=== PATIENT | male | born 1990 | race Two or more races ===

== ENCOUNTER 2019-02-26 21:37 | Emergency (ER) | payer MEDICARE ==
[~2019-02-26] VITALS: Ht 167.6 cm; Wt 100.4 kg
[~2019-02-26 21:37] MED LIST: ATOR40TA PO; CARV-39 PO; ESCI10TA10 PO; FENO160T PO; GLYB5TAB3 PO; LISI-170 PO; METF500T17 PO; OMEP40CA6 PO; OXCA300T19 PO; OXYB5TAB7 PO; QUET400T4 PO; SPIR25TA PO; ZOLP10TA PO; [UNRECOGNIZED DRUG - OTHER] PO
[2019-02-26 21:43] VITALS: BP 151/101
== END 2019-02-26 23:10 | disposition home or self-care (01) ==
LOC: ED 22:45
DX: S93.401A Sprain of unspecified ligament of right ankle, initial encounter (principal); K21.9 Gastro-esophageal reflux disease without esophagitis; E78.5 Hyperlipidemia, unspecified; E11.9 Type 2 diabetes mellitus without complications; I11.0 Hypertensive heart disease with heart failure; I50.9 Heart failure, unspecified; X50.1XXA Overexertion from prolonged static or awkward postures, initial encounter; Y93.89 Activity, other specified; Y92.009 Unspecified place in unspecified non-institutional (private) residence as the place of occurrence of the external cause; Y99.8 Other external cause status
CPT/HCPCS: 99283

== ENCOUNTER 2019-09-18 15:08 | Emergency (ER) | payer MEDICARE ==
[~2019-09-18] VITALS: Ht 167.6 cm; Wt 92.6 kg
[~2019-09-18 15:08] MED LIST changes: +OMEP40CA42 PO; -OMEP40CA6 PO; +OXYB5TAB10 PO; -OXYB5TAB7 PO
[2019-09-18] MEDS ORDERED: DIAZEPAM 5 MG TABLET ONE (15:47)
[2019-09-18] MEDS ORDERED: KETOROLAC 30 MG/1 ML ONE (15:47)
[2019-09-18] MEDS ORDERED: DIAZEPAM 5 MG TABLET PO ONE (16:00)
[2019-09-18] MEDS ORDERED: KETOROLAC 30 MG/1 ML IM ONE (16:00)
[2019-09-18] MEDS ORDERED: HYDROcodone/APAP 5/325 TABLET PO ONE (16:30)
[2019-09-18] MEDS ORDERED: HYDROcodone/APAP 5/325 TABLET ONE (16:32)
[2019-09-18 16:37] VITALS: BP 111/61
== END 2019-09-18 16:39 | disposition home or self-care (01) ==
LOC: ED 16:38
DX: M54.2 Cervicalgia (principal); R51 Headache; I10 Essential (primary) hypertension; E78.5 Hyperlipidemia, unspecified; K21.9 Gastro-esophageal reflux disease without esophagitis; I50.9 Heart failure, unspecified; E11.9 Type 2 diabetes mellitus without complications; F32.9 Major depressive disorder, single episode, unspecified; V47.0XXA Car driver injured in collision with fixed or stationary object in nontraffic accident, initial encounter; Y93.I9 Activity, other involving external motion; Y92.488 Other paved roadways as the place of occurrence of the external cause; Y99.8 Other external cause status
CPT/HCPCS: 96372; 99283; J1885

== ENCOUNTER 2019-11-13 23:15 | Emergency (ER) | payer MEDICARE ==
[~2019-11-13] VITALS: Ht 167.6 cm; Wt 87.5 kg
[2019-11-14] MEDS ORDERED: ONDANSETRON 2MG/ML, 2ML IVPush ONE
[2019-11-14] MEDS ORDERED: SODIUM CHLORIDE FLUSH 10ML SYR IVF ONE
[2019-11-14] MEDS ORDERED: ONDANSETRON 2MG/ML, 2ML ONE (00:23)
--- NOTE | 2019-11-14 00:25 | NUR ---
PT NEDICATED PER EMAR AND PIV PLACED.
[2019-11-14 00:33] LABS: BASOPHILS # (AUTO) 0.15 x10^3/uL (0-0.1); BASOPHILS % (AUTO) 2 % (0-1); EOSINOPHILS % (AUTO) 3 % (1-7); LYMPHOCYTES # (AUTO) 2.97 x10^3/uL (1-3.4); LYMPHOCYTES % (AUTO) 34 % (22-44); MD NO; MEAN CORPUSCULAR HEMOGLOBIN 28.1 pg (27.5-34.5); MEAN CORPUSCULAR HGB CONC 32.9 g/dL (33.2-36.2); MEAN CORPUSCULAR VOLUME 85.4 fL (81-97); MONOCYTES # (AUTO) 0.59 x10^3/uL (0.2-0.8); MONOCYTES % (AUTO) 7 % (2-9); NEUTROPHILS # (AUTO) 4.73 x10^3/uL (1.8-6.8); NEUTROPHILS % (AUTO) 54 % (42-75); PLATELET COUNT 215 x10^3/uL (130-400); RED BLOOD COUNT 6.46 x10^6/uL (4.38-5.82); RED CELL DISTRIBUTION WIDTH 15.2 % (9.4-14.8)
[2019-11-14 00:48] LABS: ALANINE AMINOTRANSFERASE 25 U/L (12-78); ALBUMIN 2.6 g/dL (3.4-5.0); ANION GAP 7 mmol/L (5-15); CHLORIDE 107 mmol/L (98-107); CREATININE 1.25 mg/dL (0.7-1.3)
[2019-11-14 00:52] LABS: ALKALINE PHOSPHATASE 94 U/L (45-117); BILIRUBIN,TOTAL 0.3 mg/dL (0.2-1.0); TOTAL PROTEIN 6.5 g/dL (6.4-8.2); TROPONIN I 0.016 ng/mL (0.000-0.045)
[2019-11-14 01:26] VITALS: BP 135/95
== END 2019-11-14 01:39 | disposition home or self-care (01) ==
LOC: ED 11-14 00:12
DX: R07.89 Other chest pain (principal); T82.9XXA Unspecified complication of cardiac and vascular prosthetic device, implant and graft, initial encounter; R11.2 Nausea with vomiting, unspecified; K21.9 Gastro-esophageal reflux disease without esophagitis; I50.9 Heart failure, unspecified; I11.0 Hypertensive heart disease with heart failure; E78.5 Hyperlipidemia, unspecified
CPT/HCPCS: 36415; 71045; 80053; 83880; 84484; 85025; 93005; 96374; 99284; J2405

== ENCOUNTER 2019-12-14 06:36 | Emergency (ER) | payer MEDICARE ==
[~2019-12-14] VITALS: Ht 167.6 cm; Wt 86.0 kg
[2019-12-14 07:36] LABS: BASOPHILS # (AUTO) 0.02 x10^3/uL (0-0.1); BASOPHILS % (AUTO) 0 % (0-1); EOSINOPHILS # (AUTO) 0.57 x10^3/uL (0-0.4); EOSINOPHILS % (AUTO) 6 % (1-7); LYMPHOCYTES # (AUTO) 1.99 x10^3/uL (1-3.4); LYMPHOCYTES % (AUTO) 22 % (22-44); MD NO; MEAN CORPUSCULAR HEMOGLOBIN 28.8 pg (27.5-34.5); MEAN CORPUSCULAR HGB CONC 33.3 g/dL (33.2-36.2); MEAN CORPUSCULAR VOLUME 86.4 fL (81-97); MONOCYTES # (AUTO) 0.59 x10^3/uL (0.2-0.8); MONOCYTES % (AUTO) 7 % (2-9); NEUTROPHILS # (AUTO) 5.98 x10^3/uL (1.8-6.8); NEUTROPHILS % (AUTO) 65 % (42-75); PLATELET COUNT 207 x10^3/uL (130-400); RED BLOOD COUNT 6.06 x10^6/uL (4.38-5.82); RED CELL DISTRIBUTION WIDTH 14.3 % (9.4-14.8)
[2019-12-14 07:50] LABS: ALANINE AMINOTRANSFERASE 25 U/L (12-78); ALBUMIN 2.6 g/dL (3.4-5.0); ANION GAP 9 mmol/L (5-15); CALCIUM 8.4 mg/dL (8.5-10.1); CHLORIDE 107 mmol/L (98-107); CREATININE 1.07 mg/dL (0.7-1.3)
[2019-12-14 07:52] LABS: ALKALINE PHOSPHATASE 120 U/L (45-117); BILIRUBIN,TOTAL 0.6 mg/dL (0.2-1.0); TOTAL PROTEIN 6.5 g/dL (6.4-8.2)
--- NOTE | 2019-12-14 07:59 | NUR ---
PT WITH PAIN IN R FOOT, STATES HE HAS BEEN HAVING GOUT LIKR PAIN NOW FOR A FEW WEEKS. PAIN HAS FLARED UP THIS AM, PT TOOK IBU HOT MILL SHEARER. PT WITH NO PCP, STATES HE TAKES NO MEDICATIONS ALTHOUGH IS SUPPOSED TO BE TAKING MEDICATION FOR BP. PT WITH ELEVATED BP IN TRIAGE, RETAKEN 146/114. ER PROVIDER AWARE
[2019-12-14 08:42] VITALS: BP 115/119
== END 2019-12-14 08:55 | disposition home or self-care (01) ==
LOC: ED 07:09
DX: M10.071 Idiopathic gout, right ankle and foot (principal); I11.0 Hypertensive heart disease with heart failure; I50.9 Heart failure, unspecified; E11.9 Type 2 diabetes mellitus without complications; E78.5 Hyperlipidemia, unspecified; K21.9 Gastro-esophageal reflux disease without esophagitis
CPT/HCPCS: 36415; 80053; 84550; 85025; 99284